=== PATIENT | female | born 1955 | race Caucasian/White ===

== ENCOUNTER → 2018-08-05 | Outpatient (CLI) | payer OTHER | END | disposition home or self-care (01) | LOC: OIH 13:41 | PROVIDERS: ATTEND Internal Medicine | DX: M19.072 Primary osteoarthritis, left ankle and foot (principal); M19.071 Primary osteoarthritis, right ankle and foot; M77.32 Calcaneal spur, left foot; M77.31 Calcaneal spur, right foot; M85.842 Other specified disorders of bone density and structure, left hand; M85.841 Other specified disorders of bone density and structure, right hand; M17.0 Bilateral primary osteoarthritis of knee; M79.89 Other specified soft tissue disorders; M06.4 Inflammatory polyarthropathy | CPT/HCPCS: 73120; 73560; 73620 ==